=== PATIENT | female | born 1945 | race Caucasian/White ===

== ENCOUNTER → 2024-05-31 09:04 | Outpatient (REF) | payer MEDICARE, SELFPAY ==
[2024-05-31 10:22] LABS: % Basophils 0.9 % (0-2); % Eosinophils 4.2 % (0-6); % Immature Granulocytes 0.4 % (0-0.5); % Lymphocytes 25.9 % (20.5-51.1); % Monocytes 8.2 % (1.7-9.3); % Neutrophils 60.4 % (42.2-75.2); Absolute Basophils 0.1 10^3/uL (0-0.2); Absolute Eosinophils 0.2 10^3/uL (0-0.7); Absolute Lymphocytes 1.5 10^3/uL (1.2-3.4); Absolute Monocytes 0.5 10^3/uL (0.1-0.6); Absolute Neutrophils 3.5 10^3/uL (1.4-6.5); Hemoglobin 13.4 g/dL (12.0-16.0); Mean Corp Hgb Conc. 35.3 g/dL (33.0-37.0); Mean Corpuscular Hgb 32.1 pg (27.0-31.0); Mean Corpuscular Volume 91.1 fL (81.0-99.0); Mean Platelet Volume 10.3 fL (7.4-10.4); Nucleated Red Blood Cells % 0 %; Platelet Count 242 10^3/uL (130-400); Red Blood Cell Count 4.17 10^6/uL (4.20-5.40); Red Cell Dist. Width 13.1 % (11.5-14.5); White Blood Cell Count 5.7 10^3/uL (4.8-10.8)
[2024-05-31 10:43] LABS: Blood Urea Nitrogen 19 mg/dl (7-17); Calcium 9.5 mg/dl (8.4-10.2); Carbon Dioxide 29 mmol/L (22-30); Chloride 102 mmol/L (98-107); Glucose 90 mg/dl (70-99); HDL Cholesterol 82 mg/dl; LDL Cholesterol, Calculated 151 mg/dl; Potassium 4.5 mmol/L (3.5-5.1); Sodium 138 mmol/L (135-145); Total Cholesterol 246 mg/dl (50-199); Triglyceride 65 mg/dl (10-149); Very Low Density Lipoprotein 13 mg/dl (0-30); eGFR > 60.00
[2024-05-31 11:10] LABS: Free T4 1.22 ng/dl (0.78-2.19)
[2024-05-31 11:24] LABS: TSH 2.67 uIU/ml (0.47-4.68)
[2024-05-31 11:28] LABS: Ferritin 86.3 ng/ml (11.1-264.0)
[2024-05-31 12:00] LABS: Folate 3.3 ng/ml (2.76-20)
== END ==
LOC: REG 09:04
PROVIDERS: ATTENDING PHYSICIAN Family Medicine; REFERRING PHYSICIAN Internal Medicine Medical Oncology
DX: E53.8 Deficiency of other specified B group vitamins (principal); K58.0 Irritable bowel syndrome with diarrhea; Z87.39 Personal history of other diseases of the musculoskeletal system and connective tissue; E78.2 Mixed hyperlipidemia; R79.9 Abnormal finding of blood chemistry, unspecified; Z85.72 Personal history of non-Hodgkin lymphomas
CPT/HCPCS: 36415; 80048; 80061; 82306; 82728; 82746; 84439; 84443; 85025

== ENCOUNTER → 2024-12-08 15:57 | Outpatient (REF) | payer MEDICARE, SELFPAY | LOC: RAD 15:57 | PROVIDERS: ATTENDING PHYSICIAN Family Medicine; OTHER PHYSICIAN Internal Medicine Medical Oncology | DX: J20.8 Acute bronchitis due to other specified organisms (principal); R07.81 Pleurodynia | CPT/HCPCS: 71046; 71100 ==

== ENCOUNTER → 2024-12-23 13:02 | Outpatient (REF) | payer MEDICARE, SELFPAY | LOC: RAD 13:02 | PROVIDERS: ATTENDING PHYSICIAN Family Medicine | DX: Z78.0 Asymptomatic menopausal state (principal) | CPT/HCPCS: 77080 ==

== ENCOUNTER 2025-07-15 21:00 | Emergency (ER) | payer MEDICARE, SELFPAY ==
[2025-07-15 21:17] LABS: Hematocrit 39.7 % (37.0-47.0); Hemoglobin 13.3 g/dL (12.0-16.0); Mean Corp Hgb Conc. 33.5 g/dL (33.0-37.0); Mean Corpuscular Volume 91.1 fL (81.0-99.0); Nucleated Red Blood Cells % 0 %; Platelet Count 235 10^3/uL (130-400); Red Cell Dist. Width 13.5 % (11.5-14.5)
[2025-07-15 21:19] VITALS: BMI 29.1
[2025-07-15 21:43] VITALS: BP 189/80
[2025-07-15 21:43] LABS: Blood Urea Nitrogen 22 mg/dl (7-17); Calcium 9.7 mg/dl (8.4-10.2); Carbon Dioxide 28 mmol/L (22-30); Chloride 103 mmol/L (98-107); Estimated Creatinine Clearance 58 ml/min; Glucose 142 mg/dl (70-99); Lipase 202 U/L (23-300); Sodium 138 mmol/L (135-145); eGFR > 60.00
[2025-07-15 22:38] VITALS: BP 176/78
[2025-07-15 23:00] VITALS: BP 176/83
--- NOTE | 2025-07-15 23:37 | ED.GENMED ---
History of Present Illness
General
Chief Complaint: Abdominal Symptoms
Source: patient
Exam Limitations: none
Time Seen by Provider: 07/15/25 23:01
Nursing documentation reviewed up to this point in time: agreed with
History of Present Illness
History of Present Illness:
Note:
CHIEF COMPLAINT(S)
Abdominal pain, nausea, vomiting, and diarrhea.
HISTORY OF PRESENT ILLNESS
The patient is a 79-year-old female with a pmh of PACs (no afib), PTSD, non-hodgkins lymphoma, who presents with abdominal pain beginning a few days ago, with exacerbation today. The patient describes the pain as reminiscent of food poisoning rather
than their typical irritable bowel syndrome (IBS) symptoms. The abdominal pain was initially located primarily from the region of the umbilicus downwards, accompanied by nausea and vomiting. The vomiting was severe enough to necessitate calling EMS,
due to the inability to stop vomiting and overwhelming weakness noted earlier this evening. She reports diarrhea starting today, which was initially frequent but has since lessened. She denies any blood in her stools. She denies any recent travel or
sick contacts. At present, her symptoms have improved, with nausea resolving and pain subsiding. She denies current discomfort and reports previous episodes of non-Hodgkin�s lymphoma and IBS. The patient manages their IBS by avoiding dairy and
gluten and notes emotional triggers. The patient also reports a history of diverticulitis, which occurred years ago. She had her gallbladder out in the past but denies hx of appendectomy. She follows with a GI doctor at [place]. She has not had any
fevers or chills.
PAST MEDICAL AND SURGICAL HISTORY
Past surgical history includes cholecystectomy in 1999. Patient has a history of non-Hodgkin lymphoma in remission since 2016, irritable bowel syndrome, and post-traumatic stress disorder from service in [place].
CHRONIC MEDICAL CONDITIONS SIGNIFICANTLY AFFECTING CARE
Irritable bowel syndrome, non-Hodgkins lymphoma (in remission), post-traumatic stress disorder, and atrial fibrillation with reports of occasional premature ventricular contractions (PVCs) and PACs.
SOCIAL DETERMINANTS AFFECTING HEALTH
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
REVIEW OF SYSTEMS
- Gastrointestinal: Reports abdominal pain initially located from the navel downwards, nausea, vomiting, and diarrhea.
- General: Weakness.
PHYSICAL EXAM
General: Alert, no acute distress.
Skin: Warm, dry.
Head: Normocephalic, atraumatic.
Neck: Supple, trachea midline.
Eye Ears, nose, mouth, and throat: Oral mucosa moist.
Cardiovascular: Normal peripheral perfusion, No edema.
Respiratory: Respirations are non-labored.
Gastrointestinal: Abdomen nondistended. Non-tender to palpation at this time. Normoactive bowel sounds.
Musculoskeletal: Normal range of motion, normal strength.
Neurological: Alert and oriented to person, place, time, and situation. No focal neurological deficit observed.
Psychiatric: Cooperative, appropriate mood & affect.
PLAN
- Administer intravenous fluids to ensure adequate hydration due to excessive vomiting and to ensure oral tolerance before discharge.
- Perform a computed tomography scan to rule out diverticulitis or other potential causes for the abdominal symptoms.
- Potentially obtain stool sample
- Monitor the patients condition to ensure symptoms do not worsen before discharge.
DIFFERENTIAL DIAGNOSIS
The Differential Diagnosis includes, in no particular order and is not limited to:
1. Gastroenteritis (stomach virus or food poisoning)
2. Exacerbation of irritable bowel syndrome
3. Diverticulitis
4. Viral gastroenteritis
5. Bacterial gastroenteritis
6. Non-specific colitis
7. Crohns disease
8. Ulcerative colitis
9. Partial bowel obstruction
10. Pancreatitis.
CHART REVIEW
Reviewed discharge summary from 05/29/2021 patient seen for dark stool secondary to upper GI bleed from gastritis
Reviewed colonoscopy from 03/04/2018 with found to have nonbleeding external hemorrhoids as well as a polyp in the transverse colon which was removed as well as diverticulosis examined in the entire colon
UPDATE
1:12 AM�CAT scan reveals acute gastroenteritis. Will do p.o. challenge.
2:20 AM--patient tolerated p.o. challenge and is able to tolerate p.o. intake. Patient blood pressure elevated. Will continue to monitor. Patient requesting a dose of nausea medication. However she not have any episodes of vomiting. Patient
requesting to stay for another hour or so to continue to monitor her symptoms and ensure that she is feeling well prior to discharge.
MDM/DISPOSITION
The patient is a 79-year-old female with a pmh of PACs (no afib), PTSD, non-hodgkins lymphoma, who presents with abdominal pain beginning a few days ago, with exacerbation today. The patient describes the pain as reminiscent of food poisoning rather
than their typical irritable bowel syndrome (IBS) symptoms. This evening, she called EMS because she could not stop vomiting and she felt extraordinarily weak. She had a few episodes of diarrhea that have since resolved. Physical exam she is
well-appearing in no acute distress. She has no active vomiting. Her abdomen is soft and nontender. Labs reviewed, she has a leukocytosis noted which I suspect is likely reactive in the setting of multiple episodes of vomiting and diarrhea. CMP
shows elevated BUN to creatinine ratio. Patient was given IV fluids. She went for CT which showed findings concerning for acute gastroenteritis but no surgical causes of abdominal pain. Discussed findings with patient. Patient stable for
discharge. Stressed importance of following up with PCP regarding elevated blood pressure. Discussed strict return precautions.
Past History
Past History
ED Past Medical History: GERD and Other
ED Past Surgical History: Cholecystectomy, Tonsilectomy and Other
Social History
Tobacco: Former smoker
Alcohol: Former
Drug: None
Personal: Single
Living: alone
Employment: Employed
Review of Systems
Review of Systems
All Other Systems: ROS reviewed and negative except as documented in HPI and ROS
Phy Exam
Physical Exam
Physical Exam:
see hpi
Course
Orders/Labs/Results
Orders:
Orders
07/15/25 21:04
IV Insert/Care/Rem.- Treatment PRN
07/15/25 21:10
Basic Metabolic Panel Urgent
Complete Blood Count/With Diff Urgent
Lipase Urgent
07/15/25 23:15
CT Abd/pelvis W Iv Cont Urgent
Comment:
Reason For Exam: Left lower abdominal pain
LFT [Wqahq-Vigj-Blwbrbe] Urgent
0.9% Sodium Chloride 500 ml [Nss] 500 ml IV BOLUS
07/16/25 00:14
Potassium Urgent
Comment: ADDED
07/16/25 01:27
Add On- LAB Urgent
Tests Added?: potassium
07/16/25 02:11
Ondansetron Injectable [Zofran] 4 mg IV NOW STA
Abnormal Lab Results
07/15/25
21:10
WBC 19.3 H 10^3/uL
(4.8-10.8)
Abs Immat Gran (auto) 0.1 H 10^3/uL
(0-0.05)
Absolute Neuts (auto) 15.7 H 10^3/uL
(1.4-6.5)
Absolute Monos (auto) 1.4 H 10^3/uL
(0.1-0.6)
Neutrophils % 81.4 H %
(42.2-75.2)
Lymphocytes % 9.7 L %
(20.5-51.1)
BUN 22 H mg/dl
(7-17)
Glucose 142 H mg/dl
(70-99)
07/15/25 21:10
07/16/25 01:09
Vital Signs
Blood pressure: 180/86
Initial and Last Documented VS:
Initial Vital Signs
Temp Pulse Resp Pulse Ox
98.3 F 81 20 95
07/15/25 21:02 07/15/25 21:02 07/15/25 21:02 07/15/25 21:02
Last Documented Vital Signs
Temp Pulse Resp BP Pulse Ox
98.3 F 87 15 161/76 93
07/15/25 21:02 07/16/25 03:00 07/16/25 03:00 07/16/25 03:00 07/16/25 03:00
*Pulse Oximetry
SaO2: 95
Oxygen Mode of Delivery: Room air
Patient hypoxic: no
*Critical Care Note
Total Time (30-74mins, 75-104mins- exclusive of procedures): Not Applicable
ED Attending Note
-
Portions of this chart may have been created with voice recognition software.� Occasional wrong word or��sound alike� substitutions may have occurred due to the inherent limitations of voice recognition software.
Discharge Plan
Departure
Patient Disposition: Home (Routine Discharge)
Date of Disposition: 07/16/25
Time of Disposition: 02:46
Patient with high blood pressure during this ER visit?: Yes
Condition: Good
Discharge Problem:
Acute gastroenteritis
Instructions: Viral gastroenteritis in adults, BLOOD PRESSURE
Prescriptions:
No Action
metoprolol tartrate 12.5 MG tablet
12.5 mg PO BID 30 Days Qty: 60 0RF
escitalopram oxalate [Lexapro] 5 mg Tablet
5 mg PO DAILY
alosetron 0.5 mg Tablet
0.5 mg PO BID
Referrals:
Oliva Rosales DO [Family Provider, Family Practice]
Activity Restrictions/Additional Instructions:
Please continue to monitor your symptoms. Please introduce food in small frequent meals with a bland diet. As discussed, your CAT scan shows evidence of gastroenteritis. Please call your primary care provider for repeat blood work in 1 week to
ensure your returns to baseline and to ensure you address your blood pressure.
PLEASE RETURN TO THE ER SHOULD YOU DEVELOP INTRACTABLE NAUSEA OR VOMITING, A RETURN OR ACUTE WORSENING OF YOUR SYMPTOMS, FEVERS OR CHILLS, DARK TARRY STOOLS, RECTAL BLEEDING, CHEST PAIN, SHORTNESS OF BREATH, OR ANY OTHER SIGNS OR SYMPTOMS WORRISOME
TO YOU.
Interventions
Interventions:
*Risk Screen - Suicide Last Done: 07/15/25 21:02
*General Assessment Last Done: 07/15/25 21:02
*Neglect/Abuse Screening Last Done: 07/15/25 21:02
*ED- Fall Risk Assessment Last Done: 07/15/25 21:02
*ED COVID-19 Vaccine History Last Done: 07/15/25 21:02
*Nursing Disposition Last Done: 07/16/25 03:36
GS-Ngrmxe-Zilptrtgda Assessment Last Done: 07/15/25 21:02
Discharge Date and Time
Print Language: [id number]
[2025-07-16] MEDS: NSS 500 IV (00:15)
[2025-07-16 00:19] VITALS: BP 169/96
[2025-07-16 00:52] LABS: ALT (SGPT) 15 U/L (0-35); AST (SGOT) 20 U/L (14-36); Albumin 4.3 g/dl (3.5-5.0); Alkaline Phosphatase 87 U/L (38-126); Total Protein 6.5 g/dl (6.3-8.2)
[2025-07-16 01:00] VITALS: BP 182/94
[2025-07-16 01:37] VITALS: BP 198/92
[2025-07-16 02:00] VITALS: BP 180/86
[2025-07-16 02:00] LABS: Potassium 3.9 mmol/L (3.5-5.1)
[2025-07-16] MEDS: ZOFRAN 4 MG IV (02:24)
[2025-07-16 03:00] VITALS: BP 161/76
== END 2025-07-16 03:52 | disposition home or self-care (01) ==
LOC: EMR 21:00
PROVIDERS: Physician Assistant; EMERGENCY PHYSICIAN Student in an Organized Health Care Education/Training Program; FAMILY PHYSICIAN Family Medicine
DX: K52.9 Noninfective gastroenteritis and colitis, unspecified (principal); I48.91 Unspecified atrial fibrillation; I49.3 Ventricular premature depolarization; F43.10 Post-traumatic stress disorder, unspecified; K21.9 Gastro-esophageal reflux disease without esophagitis; Z87.891 Personal history of nicotine dependence; Z85.72 Personal history of non-Hodgkin lymphomas
CPT/HCPCS: 99284; 96374; 96361; 74177; 80048; 80076; 83690; 84132; 85025; Q9967

== ENCOUNTER → 2025-09-08 14:31 | Outpatient (REF) | payer MEDICARE, SELFPAY ==
[2025-09-08 15:29] LABS: Hematocrit 38.9 % (37.0-47.0); Hemoglobin 13.0 g/dL (12.0-16.0); Mean Corp Hgb Conc. 33.4 g/dL (33.0-37.0); Mean Corpuscular Volume 92.6 fL (81.0-99.0); Nucleated Red Blood Cells % 0 %; Platelet Count 263 10^3/uL (130-400); Red Cell Dist. Width 12.9 % (11.5-14.5)
[2025-09-08 16:16] LABS: ALT (SGPT) 12 U/L (0-35); AST (SGOT) 17 U/L (14-36); Albumin 4.2 g/dl (3.5-5.0); Alkaline Phosphatase 72 U/L (38-126); Blood Urea Nitrogen 13 mg/dl (7-17); Calcium 9.4 mg/dl (8.4-10.2); Carbon Dioxide 30 mmol/L (22-30); Chloride 103 mmol/L (98-107); Glucose 102 mg/dl (70-99); Potassium 4.5 mmol/L (3.5-5.1); Sodium 134 mmol/L (135-145); Total Protein 6.9 g/dl (6.3-8.2); eGFR > 60.00
== END ==
LOC: REG 14:31
PROVIDERS: ATTENDING PHYSICIAN Physician Assistant; FAMILY PHYSICIAN Family Medicine
DX: R10.32 Left lower quadrant pain (principal)
CPT/HCPCS: 36415; 80053; 85025

== ENCOUNTER → 2025-09-09 10:06 | Outpatient (REF) | payer MEDICARE, SELFPAY | LOC: RAD 10:06 | PROVIDERS: ATTENDING PHYSICIAN Physician Assistant; FAMILY PHYSICIAN Family Medicine; REFERRING PHYSICIAN Internal Medicine Gastroenterology | DX: R10.32 Left lower quadrant pain (principal) | CPT/HCPCS: 74177; Q9967 ==

== ENCOUNTER → 2025-10-06 08:41 | Outpatient (REF) | payer MEDICARE, SELFPAY ==
[2025-10-06 09:02] LABS: Hematocrit 38.1 % (37.0-47.0); Hemoglobin 12.6 g/dL (12.0-16.0); Mean Corp Hgb Conc. 33.1 g/dL (33.0-37.0); Mean Corpuscular Volume 91.4 fL (81.0-99.0); Nucleated Red Blood Cells % 0 %; Platelet Count 242 10^3/uL (130-400); Red Cell Dist. Width 13.1 % (11.5-14.5)
[2025-10-06 09:20] LABS: ALT (SGPT) 13 U/L (0-35); AST (SGOT) 18 U/L (14-36); Albumin 4.2 g/dl (3.5-5.0); Alkaline Phosphatase 63 U/L (38-126); Blood Urea Nitrogen 12 mg/dl (7-17); Calcium 9.2 mg/dl (8.4-10.2); Carbon Dioxide 32 mmol/L (22-30); Chloride 101 mmol/L (98-107); Glucose 94 mg/dl (70-99); Lipase 42 U/L (23-300); Potassium 4.2 mmol/L (3.5-5.1); Sodium 139 mmol/L (135-145); Total Protein 6.6 g/dl (6.3-8.2); eGFR > 60.00
== END ==
LOC: REG 08:41
PROVIDERS: ATTENDING PHYSICIAN Family Medicine
DX: R74.8 Abnormal levels of other serum enzymes (principal); K86.89 Other specified diseases of pancreas; R10.12 Left upper quadrant pain; R10.11 Right upper quadrant pain
CPT/HCPCS: 80053; 83690; 85025